=== PATIENT | female | born 1930 | race Caucasian/White ===

== ENCOUNTER 2020-05-31 09:46 | Observation (INO) | payer MEDICARE ==
[~2020-05-31] VITALS: Ht 160 cm; Wt 47.9 kg
[~2020-05-31 09:46] MED LIST: ALPR1TAB6 PO; AMLO5TAB4 PO; ASPI-630 PO; CLON0.1T PO; DOCU-109 PO; MAGN400T22 PO; MECL-75 PO; METO25TA2 PO; NITR100C62 PO; TEMA15CA6 PO
--- NOTE | 2020-05-31 09:59 | PHYS DOC ---
Past History Past Medical History: Hypertension Past Surgical History: No Surgical History Alcohol Use: None Drug Use: None Adult General Chief Complaint Chief Complaint: ALTERED MENTAL STATUS HPI HPI Patient is a 89 year old female who presents with her son to the emergency department for altered mental status. Patient is unable to provide any history due to her current condition. The patient's son states that he was feeding the patient breakfast this morning when the patient suddenly started to "phase out" at approximately 0945 this morning. He states that she became minimally responsive and very weak. He thus brought the patient to the emergency department for further evaluation. Patient son is a poor historian and is unsure of the patient's medical conditions. He does not believe that the patient is on blood thinner medication. Notes history of COPD but is unsure of any other medical conditions. He states that the patient is typically very high functioning and ambulates independently. He does note that the patient took medications this morning but was unsure what they were. He believes that they are related to her heart. Review of Systems Review of Systems Unable to complete review of systems due to patient unable to answer questions All other systems were reviewed and found to be within normal limits, except as documented in this note. Allergies Allergies Allergies Coded Allergies Type Severity Reaction Last Updated Verified adhesive tape Adverse Reaction Intermediate Rash 07/27/15 Yes Physical Exam Physical Exam Constitutional: Lethargic, attempts to follow commands, able to answer in one- word sentences. [] HENT: Normocephalic, atraumatic, bilateral external ears normal, oropharynx moist, no oral exudates, nose normal. [] Eyes: Left pupil 3 mm and sluggish, right pupil 1 to 2 mm and sluggish, leftward gaze, right-sided neglect, conjunctiva normal, no discharge. [] Neck: Normal range of motion, no tenderness, supple, no stridor. [] Cardiovascular:Heart rate regular rhythm, no murmur [] Lungs & Thorax: Bilateral breath sounds clear to auscultation [] Abdomen: Bowel sounds normal, soft, no tenderness, no masses, no pulsatile masses. [] Skin: Warm, dry, no erythema, no rash. [] Back: No tenderness, no CVA tenderness. [] Extremities: No tenderness, no cyanosis, no clubbing, ROM intact, no edema. [] Neurologic: Lethargic, opens eyes to voice, 2 out of 5 motor strength in the right upper and lower extremity, 4 out of 5 motor strength in the left upper and lower extremity, right-sided neglect, decreased sensation to pinprick in the right upper and lower extremity. [] Current Patient Data Vital Signs Vital Signs Date Time Temp Pulse Resp B/P (MAP) Pulse Ox O2 Delivery O2 Flow Rate FiO2 05/31/20 11:30 63 16 148/93 (111) 96 Room Air 05/31/20 11:15 65 16 141/47 (78) 97 Room Air 05/31/20 10:50 57 10 114/55 (74) 93 Room Air 05/31/20 09:46 97.8 63 16 136/56 (82) 93 Room Air Lab Results Laboratory Tests Test 05/31/20 09:58 White Blood Count 10.0 x10^3/uL Red Blood Count 4.77 x10^6/uL Hemoglobin 15.2 g/dL Hematocrit 44.4 % Mean Corpuscular Volume 93 fL Mean Corpuscular Hemoglobin 32 pg Mean Corpuscular Hemoglobin Concent 34 g/dL Red Cell Distribution Width 13.3 % Platelet Count 247 x10^3/uL Prothrombin Time 10.3 SEC Prothromb Time International Ratio 1.0 Activated Partial Thromboplast Time < 21 SEC Sodium Level 137 mmol/L Potassium Level 3.4 mmol/L Chloride Level 101 mmol/L Carbon Dioxide Level 25 mmol/L Anion Gap 11 Blood Urea Nitrogen 20 mg/dL Creatinine 0.9 mg/dL Estimated GFR (Cockcroft-Gault) 59.0 Glucose Level 188 mg/dL Calcium Level 8.9 mg/dL Current Medications Medications (Trade) Dose Ordered Sig/Surjit Route PRN Reason Start Time Stop Time Status Last Admin Dose Admin Ondansetron HCl (Zofran) 4 mg 1X ONCE IVP 05/31/20 10:45 05/31/20 10:46 DC 05/31/20 10:45 Ondansetron HCl (Zofran) 4 mg PRN Q4HRS PRN IVP NAUSEA/VOMITING 05/31/20 12:00 06/01/20 11:59 Sodium Chloride 1,000 ml @ 125 mls/hr Q8H IV 05/31/20 11:46 06/01/20 11:45 EKG EKG Interpreted by me: Heart rate 58, sinus rhythm, right bundle branch block, no acute ST elevations or depressions [] Radiology/Procedures Radiology/Procedures [address] [address] IMAGING REPORT Signed PATIENT: JERAMY ALONSO DACCOUNT: [id number] : 1930 LOCATION: ER AGE: 89 SEX: F EXAM STATUS: PRE ER ORD. PHYSICIAN: ADRIANA MADRIGAL MD REASON: right sided neglect, weakness, onset 944 PROCEDURE: CT CODE STROKE HEAD WO CT CODE STROKE HEAD WO History: Right side neglect, weakness, onset 944 Comparison: January 27, 2016 Technique: Noncontrast CT imaging was performed of the head. Exposure: One or more of the following individualized dose reduction techniques were utilized for this examination: 1. Automated exposure control 2. Adjustment of the mA and/or kV according to patient size 3. Use of iterative reconstruction technique. Findings: There is some motion degradation. No convincing acute hyperdense intracranial hemorrhage is identified. There is again focus of nonspecific calcification of the parenchyma of the left frontal region. There is again multifocal low-density of the supratentorial parenchyma bilaterally probably somewhat progressed in the interval. Ventricular size is proportionate to the sulcal spaces, mild generalized supratentorial involutional change. There is evidence for calcification carotid siphons and intradural vertebral arteries bilaterally. The visualized paranasal sinuses and mastoid air cells are overall aerated. Impression: 1. No acute intracranial hemorrhage is identified. 2. Multifocal low-density of the supratentorial parenchyma bilaterally is nonspecific, more commonly due to chronic microvascular ischemic disease in a patient this age. There is again focus of nonspecific parenchymal hemorrhage in the left parietal region as may be sequela of previous infection, infarct, or old hemorrhage. Critical results were discussed with Dr. MADRIGAL at 05/31/2020 10:44 AM. Electronically signed by: Heide Ritchie MD (05/31/2020 10:44 AM) [id number] DICTATED AND SIGNED BY: HEIDE RITCHIE MD DATE: 05/31/20 1044 CC: CEASAR MONTANO MD; ADRIANA MADRIGAL MD ~ [] Course & Med Decision Making Course & Med Decision Making Pertinent Labs and Imaging studies reviewed. (See chart for details) The patient was activated as a code stroke at 0956. The patient arrived in the emergency department during maintenance of the CT scanner in the emergency department. The CT scanner in the ED was not available for an immediate code stroke CT. For this reason, the patient had to be transported by ambulance to the hospital to receive an emergent head CT to rule out intracranial hemorrhage. After this was completed I did receive report from the radiologist at [address] imaging was negative. While the patient was up receiving imaging, I consulted Dr. Adam, stroke neurologist at [facility] regarding patient due to initial high suspicion for CVA symptoms. Upon returning to the emergency department, it was noted that the patient's breathing became more shallow and that the patient was having worsening difficulty protecting airway. This did improve with verbal and physical stimulation. Though the patient had no reported history of use of opioid medication, an empiric dose of Narcan 0.4 mg IV was used at 1055. Within 1 minute, the patient had immediate improvement in condition. She was able to communicate at her baseline and showed no focal deficits. In speaking with the patient's son, he states that the patient does not have a prescription for opioids and does not understand why the patient responded specifically to Narcan. At this time, I do believe that the patient is in need of admission for further evaluation. I did contact [facility] and notify them that the patient's condition had significantly changed after administration of Narcan. We agreed to withhold use of TPA in this patient as neurologic deficits have resolved and the patient do es not require transfer to a higher level of care as we are able to offer neurology consult and further observation and treatment here at [facility]. I contacted the patient's primary physician, Dr. Montano, who agreed to admit patient for further care in the hospital. A consult was placed to Dr. Rao of neurology to follow with patient in hospital. Critical CARE time excluding procedures: 60 minutes [] Dragon Disclaimer Dragon Disclaimer This electronic medical record was generated, in whole or in part, using a voice recognition dictation system. Departure Departure: Impression: Primary Impression: Toxic encephalopathy Disposition: ADMITTED INPATIENT Admitting Physician: Ceasar Montano Condition: STABLE Referrals: CEASAR MONTANO MD (PCP) Justification of Admission: Justification of Admission: Justification of Admission Dx: Yes Altered Mental Status: Altered Mental Status ADRIANA MADRIGAL MD May 31, 2020 09:59
[2020-05-31 10:13] LABS: HEMATOCRIT 44.4 % (36.0-47.0); HEMOGLOBIN 15.2 g/dL (12.0-15.5); RED BLOOD COUNT 4.77 x10^6/uL (3.50-5.40); RED CELL DISTRIBUTION WIDTH 13.3 % (11.5-14.5)
[2020-05-31 10:22] LABS: CALCIUM 8.9 mg/dL (8.5-10.1); CREATININE 0.9 mg/dL (0.6-1.0); POTASSIUM 3.4 mmol/L (3.5-5.1)
--- NOTE | 2020-05-31 10:32 | EKG ---
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
[2020-05-31] MEDS ORDERED: ONDANSETRON PF 4 MG/2 ML VIAL. IVP ONE (10:45)
--- NOTE | 2020-05-31 10:47 | RAD ---
CT CODE STROKE HEAD WO History: Right side neglect, weakness, onset 0945 Comparison: January 27, 2016 Technique: Noncontrast CT imaging was performed of the head. Exposure: One or more of the following individualized dose reduction techniques were utilized for this examination: 1. Automated exposure control 2. Adjustment of the mA and/or kV according to patient size 3. Use of iterative reconstruction technique. Findings: There is some motion degradation. No convincing acute hyperdense intracranial hemorrhage is identified. There is again focus of nonspecific calcification of the parenchyma of the left frontal region. There is again multifocal low-density of the supratentorial parenchyma bilaterally probably somewhat progressed in the interval. Ventricular size is proportionate to the sulcal spaces, mild generalized supratentorial involutional change. There is evidence for calcification carotid siphons and intradural vertebral arteries bilaterally. The visualized paranasal sinuses and mastoid air cells are overall aerated. Impression: 1. No acute intracranial hemorrhage is identified. 2. Multifocal low-density of the supratentorial parenchyma bilaterally is nonspecific, more commonly due to chronic microvascular ischemic disease in a patient this age. There is again focus of nonspecific parenchymal hemorrhage in the left parietal region as may be sequela of previous infection, infarct, or old hemorrhage. Critical results were discussed with Dr. MADRIGAL at 05/31/2020 10:44 AM. Electronically signed by: Noman Mccracken MD (05/31/2020 10:44 AM) [id number]
[2020-05-31] MEDS ORDERED: NALOXONE 0.4 MG/ML VIAL. ONE (10:53)
[2020-05-31] MEDS ORDERED: ALTEPLASE 0 MG IV ONE (10:57)
[2020-05-31] MEDS: IV NORMAL SALINE 1,000ML 1,000 ML IV SCH ×2 (11:46→16:59)
[2020-05-31] MEDS ORDERED: ONDANSETRON PF 4 MG/2 ML VIAL. IVP PRN (12:00)
[2020-05-31 15:08] VITALS: BP 116/59
[2020-05-31] MEDS ORDERED: ALPRAZolam 0.5 MG TABLET PO PRN (16:00)
[2020-05-31] MEDS ORDERED: ONDANSETRON ODT 4 MG TAB.RAPDIS PO PRN (16:15)
--- NOTE | 2020-05-31 16:31 | RAD ---
Exam: Acute abdominal series INDICATION: Nausea TECHNIQUE: Frontal view of the chest with upright and supine views of the abdomen Comparisons: None FINDINGS: The cardiomediastinal silhouette and pulmonary vessels are within normal limits. Patchy airspace disease noted in the left mid and lower lung. No pleural effusion. Air and stool are noted throughout the colon to level the rectum in a nonobstructive bowel gas pattern. No suspicious masses or calcifications. No free air Diffuse osteopenia. IMPRESSION: 1. Patchy airspace disease in the left mid and lower lung, may be infectious or inflammatory in etiology. 2. Nonobstructive bowel gas pattern. Electronically signed by: Charito Ulrich MD (05/31/2020 4:28 PM) [id number]
--- NOTE | 2020-05-31 18:52 | CONS ---
DATE OF CONSULTATION: NEUROLOGY CONSULTATION REFERRING PHYSICIAN: Dr. Alatorre. REASON FOR CONSULTATION: Acute mental status changes and generalized weakness. HISTORY OF PRESENT ILLNESS: This is an 89-year-old right-handed female who was admitted through Emergency Room after she had acute onset of mental status changes and generalized weakness. According to the patient's son, who was feeding her this morning, all of a sudden she became very weak and phasing out, she became less responsive. EMS was activated and transferred the patient to Emergency Room for further evaluation to rule out acute stroke. In the ER, the patient's mental status has somewhat improved when she came back from head CT scan, which revealed no evidence of acute intracranial process or bleed, but it shows chronic small vessel ischemic changes. Currently, the patient denies any headaches, visual disturbances, nausea, vomiting, chest pain, shortness of breath or palpitation; however, she complains of generalized weakness and difficulty to walk. She denies dysarthria, dysphagia or dizziness. During the ER course, the patient was given Narcan. The ER physician contacted [facility] for further recommendations. Due to improvement in her mental status, it was decided not to start the patient on TPA, which I agree considering the age and the improvement of the symptoms and the physical examination. PAST MEDICAL HISTORY: Significant for coronary artery disease, hypertension, hyperlipidemia, gastroesophageal reflux disease, diverticulosis, osteoporosis, depression and anxiety. SOCIAL HISTORY: The patient lives with her son. She denies smoking, alcohol drinking, or illicit drug use. FAMILY HISTORY: Noncontributory. CURRENT HOME MEDICATIONS: Alprazolam 1 mg p.r.n. for anxiety, amlodipine 5 mg daily, aspirin 81 mg daily, Colace 100 mg p.r.n. for constipation, metoprolol 25 mg b.i.d., temazepam 15 mg at bedtime for insomnia. ALLERGIES: ADHESIVE TAPE. REVIEW OF SYSTEMS: A 10-point review of system was performed as mentioned above in history of present illness. PHYSICAL EXAMINATION: GENERAL: A thin female, not in acute distress. She weighs 47.9 kilos. VITAL SIGNS: Blood pressure 160/59, respiratory rate 16, pulse is 63, temperature 97.5, oxygen saturation 98% on 2 liters by nasal cannula. HEENT: Normocephalic, atraumatic, otherwise unremarkable. NECK: Supple. Negative for carotid bruit, lymphadenopathy or thyromegaly. LUNGS: Clear to A and P. CARDIOVASCULAR: Regular rate and rhythm, normal S1, S2. ABDOMEN: Soft. Bowel sounds positive. EXTREMITIES: Negative for cyanosis, clubbing or edema. NEUROLOGICAL: MENTAL STATUS: The patient is alert and oriented to herself and situation. She knows she is in the hospital. She does remember the date. She could not name the President of [facility]. Her speech appeared to be fluent. No language dysfunction. Memory, judgment, and abstracting thinking are fair. The patient denies hallucination or delusion. CRANIAL NERVES: Visual law are full. The pupils are reactive to light and accommodation. The extraocular movements are intact. There is no nystagmus. There is no facial motor or sensory deficit. Hearing is slightly diminished bilaterally. The palate is elevated symmetrically. Sternocleidomastoid muscles are powerful bilaterally. The patient shrugs her shoulders symmetrically, protrudes her tongue in the midline without fasciculation or atrophy. MOTOR EXAMINATION: No focal muscle bulk was seen. The tone is normal. The strength is 4/5 throughout. SENSORY EXAMINATION: Revealed normal pinprick, light touch, vibratory and position senses. Deep tendon reflexes were symmetric and hypoactive with absent Achilles responses. GAIT: Not tested. DIAGNOSTIC DATA: Nonenhanced head CT scan revealed no evidence of acute intracranial process, but it showed chronic small vessel ischemic changes. Acute abdomen series revealed nonobstructive bowel gas pattern. LABORATORY DATA: CBC white blood cells of 10,000, hemoglobin 15.2, hematocrit 44.4, platelet count 247,000. Chemistry revealed sodium of 137, potassium 3.4, chloride 101, CO2 of 25, BUN 20, creatinine 0.9, glucose 188. EKG revealed normal sinus rhythm with heart rate of 58 and right bundle-branch block. IMPRESSION: 1. Positive transient ischemic attack, presented with sudden onset of generalized weakness and less verbal response, improved over time. 2. History of multiple medical problems, include hypertension, hyperlipidemia, gastroesophageal reflux disease, osteoporosis, depression and anxiety. RECOMMENDATION: 1. Continue with aspirin 81 mg daily. 2. Continue with current home medications. 3. Physical therapy evaluation. 4. Carotid Doppler study. M Virgilio FELIZ MD DR: DIONNE/subhash JOB#: [id number] / [id number]
[2020-05-31] MEDS ORDERED: amLODIPine BESYLATE 5 MG TABLET PO SCH (21:00)
[2020-06-01 03:07] LABS: HEMOGLOBIN A1C 5.3 % (4.8-5.6)
[2020-06-01] MEDS ORDERED: MAGNESIUM OXIDE 400 MG TABLET PO SCH (09:00)
[2020-06-01] MEDS ORDERED: METOPROLOL SUCC 24HR ER 25 MG TAB.ER.24H. PO SCH (09:00)
--- NOTE | 2020-06-01 10:58 | HP ---
ADMIT DATE: 05/31/2020 HISTORY OF PRESENT ILLNESS: An 89-year-old female came in through the Emergency Room, apparently son brought her in for result was altered mental status. She had her breakfast and suddenly started to phase out. The patient became very weak, basically minimally responsive, came in through the Emergency Room. The patient was evaluated there and admitted for possible TIA, brain change in mental status. PAST MEDICAL HISTORY: She has a strong anxiety, complex coronary artery disease, hypertension, diverticulosis, endoscopy, colonoscopy in 2002, GERD, osteoporosis, depression, anxiety. Vaccination, pneumococcal up-to-date. FAMILY HISTORY: Unremarkable. ALLERGIES: ADHESIVE TAPE. MEDICATIONS: Metoprolol, Norvasc, aspirin, Xanax 1 mg, temazepam 15, magnesium and docusate sodium. SOCIAL HISTORY: Denies smoking, alcohol or drug use. She is a full code. Lives at home with her son. REVIEW OF SYSTEMS: The patient really not able to give much in the way of history there. However, apparently the ER doctor did give her Narcan and that seemed to help revive her quite easily and make her feel better, she was admitted and placed on IV fluids. Otherwise, review of systems negative. PHYSICAL EXAMINATION: VITAL SIGNS: Blood pressure 116/60, respiratory rate 16, pulse 63, afebrile. HEENT: The patient's head was atraumatic, normocephalic. Eyes: PERRLA without jaundice. Mouth and throat were normal. NECK: Supple. LUNGS: Diminished, but clear. CARDIOVASCULAR: Regular sinus rhythm. ABDOMEN: Soft, nontender, no rebound or guarding. Positive bowel sounds, no hepatosplenomegaly noted. EXTREMITIES: No clubbing, cyanosis or edema. NEUROLOGIC: Alert, baseline dementia, although she does have a lot of anxiety. She does have some short-term memory deficits, but this is more or less baseline for this patient anyway. She will continue to be monitored carefully. LABORATORY DATA: Reviewed as noted; Dr. Rao, neurologist reviewed the patient. IMPRESSION: Positive for transient ischemic attack, presented with sudden onset of generalized weakness, less verbal response, improved after getting Narcan, history of other multiple medical problems, hypertension, hyperlipidemia, gastroesophageal reflux disease, depression and anxiety. PLAN: The patient is to continue with baby aspirin, monitor accordingly and be discharged as indicated. CEASAR MONTANO MD DR: IVELISSE/subhash JOB#: [id number] / [id number]
== END 2020-05-31 20:45 | disposition home or self-care (01) ==
LOC: ER 09:46 → 1 SOUTH 11:20 → INTOOBSV 11:20
PROVIDERS: ADMIT Family Medicine; ATTEND Family Medicine
DX: G45.9 Transient cerebral ischemic attack, unspecified (principal); I10 Essential (primary) hypertension; E78.5 Hyperlipidemia, unspecified; K21.9 Gastro-esophageal reflux disease without esophagitis; F32.9 Major depressive disorder, single episode, unspecified; M81.0 Age-related osteoporosis without current pathological fracture; I25.10 Atherosclerotic heart disease of native coronary artery without angina pectoris; Z79.899 Other long term (current) drug therapy
CPT/HCPCS: 36415; 70450; 74022; 80048; 83036; 85027; 85610; 85730; 92610; 93005; 96361; 96374; 99291; G0378; J2405; J7030; G0379